=== PATIENT | male | born 1965 ===

== ENCOUNTER 2018-11-16 07:41 | Day surgery (SDC) | payer OTHER ==
[2018-11-16] MEDS ORDERED: ACETAZOLAMIDE 250 MG PO ONE (07:51)
[2018-11-16] MEDS: TETRACAINE HCL 0.5 % 1 DROP SOL ONE ×3 (08:08→09:14)
[2018-11-16] MEDS: KETOROLAC 0.5% OPTH 60 DROP SOL ONE ×2 (08:09→08:21)
[2018-11-16] MEDS: PHENYLEPHRINE HCL 10% OPHTHAL SOL ONE ×2 (08:09→08:20)
[2018-11-16] MEDS: CYCLOPENTOLATE 1% SOL ONE ×2 (08:09→08:21)
[2018-11-16] MEDS ORDERED: MIDAZOLAM 2 MG/2 ML SOL ONE (08:41)
[2018-11-16] MEDS ORDERED: FENTANYL 100MCG/2ML SOL ONE (08:41)
[2018-11-16] MEDS ORDERED: IMPRIMIS ONE (09:08)
[2018-11-16] MEDS ORDERED: POVIDONE IODINE 5% SOL ONE (09:08)
[2018-11-16] MEDS ORDERED: BSS 500 ML 500 ML IR ONE (09:08)
[2018-11-16] MEDS ORDERED: LIDOCAINE HCL 1% MPF 30 SOL ONE (09:08)
[2018-11-16 09:44] VITALS: BP 145/91; PULSE 85; RESP 20; TEMP 97.4; O2SAT 98
== END 2018-11-16 09:57 | disposition home or self-care (01) | DRG 125 ==
LOC: SURG 07:41
PROVIDERS: ATTEND Ophthalmology
DX: H25.89 Other age-related cataract (principal); E11.9 Type 2 diabetes mellitus without complications
CPT/HCPCS: 82962; J2250; J3010; A9270-GY; J2001